=== PATIENT | male | born 1960 | race American Indian/Alaskan Native ===

== ENCOUNTER 2019-07-15 14:09 | Inpatient (IN) | payer MEDICAID ==
--- NOTE | 2019-07-15 15:36 | Event Note ---
ED Screening Note Date of service: 07/15/19 Time: 15:32 ED Screening Note: 58 y o male presenst with throat pain stating his throat feels tight also cc of chills, sob HX: HTN, on meds states he doesnt know whats wrong seems very uncomfortable This initial assessment/diagnostic orders/clinical plan/treatment(s) is/are subject to change based on patients health status, clinical progression and re- assessment by fellow clinical providers in the ED. Further treatment and workup at subsequent clinical providers discretion. Patient/guardian urged not to elope from the ED as their condition may be serious if not clinically assessed and managed. Initial orders include: steroids, cxr evaluate
--- NOTE | 2019-07-15 17:09 | XRay Report ---
CHEST 2 VIEWS INDICATION / CLINICAL INFORMATION: pain/sob. COMPARISON: None available. FINDINGS: SUPPORT DEVICES: None. HEART / MEDIASTINUM: No significant abnormality. LUNGS / PLEURA: No significant pulmonary or pleural abnormality. .No pneumothorax. ADDITIONAL FINDINGS: No significant additional findings. IMPRESSION: 1. No acute findings. Signer Name: Delvin Mallory MD Signed: 07/15/2019 5:04 PM Workstation Name: [id number]
[2019-07-15] MEDS ORDERED: dexAMETHasone 20 MG/5 ML VIAL IV ONE (19:56)
--- NOTE | 2019-07-15 19:57 | Emergency Department Report ---
ED General Adult HPI - General Chief complaint: Upper Respiratory Infection Stated complaint: HYPERTENSION/FLU SYMPTOMS Source: patient Mode of arrival: Ambulatory Limitations: No Limitations - History of Present Illness Initial comments: 58 y o male presenst with throat pain stating his throat feels tight also cc of chills, sob HX: HTN, on meds states he doesnt know whats wrong Patient reports that he was seen at [facility] yesterday and diagnosed with the flu. Patient also reports that he was diagnosed with bedbugs. He has not picked up any of his medications. Patient is difficult to understand secondary to throat pain and swollen as well as increased mucus he is spitting into a vomit bag. Severity scale (0 -10): 7 - Related Data Allergies Allergy/AdvReac Type Severity Reaction Status Date / Time No Known Allergies Allergy Unverified 07/15/19 14:19 ED Review of Systems ROS: Stated complaint: HYPERTENSION/FLU SYMPTOMS Other details as noted in HPI ED Past Medical Hx - Past Medical History Previous Medical History?: Yes Hx Hypertension: Yes - Surgical History Past Surgical History?: Yes Hx Appendectomy: Yes - Social History Smoking Status: Current Every Day Smoker Substance Use Type: Alcohol, Cocaine, Marijuana ED Physical Exam - General Limitations: No Limitations General appearance: alert - Head Head exam: Present: atraumatic, normocephalic - Eye Eye exam: Present: normal appearance - Expanded ENT Exam Expanded Mouth exam: Present: drooling, muffled voice, tongue elevation Throat exam: Positive: tonsillomegaly - Neck Neck exam: Present: full ROM - Respiratory Respiratory exam: Present: normal lung sounds bilaterally. Absent: respiratory distress - Cardiovascular Cardiovascular Exam: Present: regular rate, normal rhythm. Absent: systolic murmur, diastolic murmur, rubs, gallop - Neurological Exam Neurological exam: Present: alert, oriented X3 - Psychiatric Psychiatric exam: Present: normal affect, normal mood - Skin Skin exam: Present: warm, dry, intact, normal color. Absent: rash ED Course Vital Signs 07/15/19 07/15/19 15:29 18:40 Temperature 98.3 F 97.4 F L Pulse Rate 80 73 Respiratory 20 18 Rate Blood Pressure 159/101 164/118 [Right] O2 Sat by Pulse 98 97 Oximetry ED Medical Decision Making - Radiology Data Radiology results: report reviewed Patient: SIXTO RODRIGUEZ MR#: [id number] [birth year] : 1960 Acct:[id number] Age/Sex: 58 / M ADM Date: 07/15/19 Loc: ED Attending Dr: Ordering Physician: JULIA CANTU Date of Service: 07/15/19 Procedure(s): XR chest routine 2V Accession Number(s): [id number] cc: JULIA CANTU Fluoro Time In Minutes: CHEST 2 VIEWS INDICATION / CLINICAL INFORMATION: pain/sob. COMPARISON: None available. FINDINGS: SUPPORT DEVICES: None. HEART / MEDIASTINUM: No significant abnormality. LUNGS / PLEURA: No significant pulmonary or pleural abnormality. .No pneumothorax. ADDITIONAL FINDINGS: No significant additional findings. IMPRESSION: 1. No acute findings. Signer Name: Delvin Mallory MD Signed: 07/15/2019 5:04 PM Workstation Name: [id number] Transcribed By: Dictated By: Delvin Mallory MD Electronically Authenticated By: Delvin Mallory MD Signed Date/Time: 07/15/191703 DD/ 03 TD/TT: - Medical Decision Making 58 y o male presenst with throat pain stating his throat feels tight also cc of chills, sob HX: HTN, on meds states he doesnt know whats wrong Patient reports that he was seen at [facility] yesterday and diagnosed with the flu. Patient also reports that he was diagnosed with bedbugs. He has not picked up any of his medications. Patient is difficult to understand secondary to throat pain and swollen as well as increased mucus he is spitting into a vomit bag. Critical care attestation.: If time is entered above; I have spent that time in minutes in the direct care of this critically ill patient, excluding procedure time. ED Disposition Condition: Stable
[2019-07-15] MEDS ORDERED: SODIUM CHLORIDE 0.9% 1000 ML 1,000 ML IV ONE (20:50)
--- NOTE | 2019-07-15 20:53 | Emergency Department Report ---
ED General Adult HPI - General Chief complaint: Upper Respiratory Infection Stated complaint: HYPERTENSION/FLU SYMPTOMS Time Seen by Provider: 07/15/19 19:55 Source: patient Mode of arrival: Ambulatory Limitations: No Limitations - History of Present Illness Initial comments: Patient is a 58-year-old male known to this hospital before. Patient presented to the triage area complaining of throat pain and difficulty swallowing and breathing since yesterday getting worse today. Patient had a history of schizophrenia, IBS, seizure and hypertension. Patient stated that he went to [facility] yesterday and he was diagnosed with flu. Upon my assessment the patient patient is with obvious airway compromise and gargling. Patient is unable to complete sentences, unable to obtain more history from the patient. Patient immediately moved to [place] ED. Using etomidate, I attempted to visualize his upper airway, unable to visualize his vocal cords due to significant soft tissue swelling. Anesthesia consulted and immediately examined the patient at bedside. During all this resuscitation time, patient maintained his oxygen saturation above 95%. Severity scale (0 -10): 7 - Related Data Home Medications Medication Instructions Recorded Confirmed Last Taken No Known Home Medications [No 07/16/19 07/16/19 Unknown Reported Home Medications] Allergies Allergy/AdvReac Type Severity Reaction Status Date / Time Penicillins AdvReac Itching Verified 07/15/19 21:37 ED Review of Systems ROS: Stated complaint: HYPERTENSION/FLU SYMPTOMS Other details as noted in HPI Comment: Unobtainable due to pts medical conditions ED Past Medical Hx - Past Medical History Previous Medical History?: Yes Hx Hypertension: Yes - Surgical History Past Surgical History?: Yes Hx Appendectomy: Yes - Social History Smoking Status: Current Every Day Smoker Substance Use Type: Alcohol, Cocaine, Marijuana - Medications Home Medications: Home Medications Medication Instructions Recorded Confirmed Last Taken Type No Known Home Medications [No 07/16/19 07/16/19 Unknown History Reported Home Medications] ED Physical Exam - General Limitations: No Limitations General appearance: alert, in distress (acute respiratory distress) - Head Head exam: Present: atraumatic, normocephalic, normal inspection - Eye Eye exam: Present: normal appearance - ENT ENT exam: Present: normal exam - Neck Neck exam: Present: other (tracheostomy scar seen.). Absent: tenderness - Respiratory Respiratory exam: Present: normal lung sounds bilaterally - Cardiovascular Cardiovascular Exam: Present: regular rate, normal rhythm, normal heart sounds - GI/Abdominal GI/Abdominal exam: Present: soft, normal bowel sounds. Absent: distended, tenderness, guarding, rebound, rigid, organomegaly, mass, bruit, pulsatile mass, hernia - Extremities Exam Extremities exam: Present: normal inspection, full ROM, normal capillary refill. Absent: pedal edema, calf tenderness - Back Exam Back exam: Present: normal inspection, full ROM. Absent: CVA tenderness (R), CVA tenderness (L) - Neurological Exam Neurological exam: Present: alert, oriented X3 - Skin Skin exam: Present: warm, intact, normal color ED Course Vital Signs 07/15/19 07/15/19 07/15/19 15:29 18:40 20:30 Temperature 98.3 F 97.4 F L Pulse Rate 80 73 78 Respiratory 20 18 27 H Rate Blood Pressure 175/123 Blood Pressure 159/101 164/118 [Right] O2 Sat by Pulse 98 97 92 Oximetry 07/15/19 07/15/19 07/15/19 20:47 21:00 21:15 Temperature Pulse Rate 77 72 76 Respiratory 13 27 H 23 Rate Blood Pressure 194/119 160/107 166/109 Blood Pressure [Right] O2 Sat by Pulse 99 90 95 Oximetry 07/15/19 07/15/19 07/15/19 21:30 21:45 21:55 Temperature Pulse Rate 81 71 85 Respiratory 20 19 Rate Blood Pressure 170/114 169/124 170/114 Blood Pressure [Right] O2 Sat by Pulse 96 100 Oximetry 07/15/19 07/15/19 07/15/19 22:00 22:45 23:15 Temperature Pulse Rate 69 65 66 Respiratory 23 25 H 19 Rate Blood Pressure 144/96 147/100 131/89 Blood Pressure [Right] O2 Sat by Pulse 99 100 99 Oximetry 07/15/19 07/15/19 07/16/19 23:30 23:45 00:00 Temperature 97.6 F Pulse Rate 66 93 H Respiratory 19 23 Rate Blood Pressure 139/92 139/92 Blood Pressure [Right] O2 Sat by Pulse 99 98 Oximetry 07/16/19 07/16/19 07/16/19 00:45 01:00 01:15 Temperature Pulse Rate 59 L 57 L 59 L Respiratory 14 20 20 Rate Blood Pressure 146/97 155/98 156/99 Blood Pressure [Right] O2 Sat by Pulse 98 99 100 Oximetry 07/16/19 07/16/19 07/16/19 01:45 02:01 02:15 Temperature Pulse Rate 65 62 65 Respiratory 19 20 19 Rate Blood Pressure 145/98 142/94 143/98 Blood Pressure [Right] O2 Sat by Pulse 99 99 99 Oximetry 07/16/19 07/16/19 07/16/19 02:30 03:15 03:31 Temperature Pulse Rate 64 71 64 Respiratory 20 12 19 Rate Blood Pressure 155/99 137/102 132/80 Blood Pressure [Right] O2 Sat by Pulse 99 99 99 Oximetry 07/16/19 07/16/19 07/16/19 03:45 04:15 04:30 Temperature Pulse Rate 68 66 66 Respiratory 20 15 17 Rate Blood Pressure 124/76 120/78 136/89 Blood Pressure [Right] O2 Sat by Pulse 100 100 100 Oximetry 07/16/19 07/16/19 07/16/19 04:45 05:00 05:15 Temperature Pulse Rate 64 74 84 Respiratory 24 17 27 H Rate Blood Pressure 135/83 146/96 146/96 Blood Pressure [Right] O2 Sat by Pulse 100 98 98 Oximetry 07/16/19 07/16/19 07/16/19 05:31 05:45 06:01 Temperature Pulse Rate 70 72 60 Respiratory 19 13 19 Rate Blood Pressure 143/88 143/88 143/88 Blood Pressure [Right] O2 Sat by Pulse 97 99 97 Oximetry 07/16/19 07/16/19 07/16/19 06:15 06:31 06:45 Temperature Pulse Rate 79 65 63 Respiratory 12 15 15 Rate Blood Pressure 143/88 143/88 143/88 Blood Pressure [Right] O2 Sat by Pulse 98 99 100 Oximetry 07/16/19 07/16/19 07/16/19 07:00 07:49 08:15 Temperature Pulse Rate 61 74 60 Respiratory 12 13 15 Rate Blood Pressure 115/86 151/92 Blood Pressure 154/108 [Right] O2 Sat by Pulse 100 99 100 Oximetry 07/16/19 07/16/19 07/16/19 08:45 09:00 09:15 Temperature Pulse Rate 79 61 62 Respiratory 14 12 12 Rate Blood Pressure 148/98 146/96 155/102 Blood Pressure [Right] O2 Sat by Pulse 100 100 100 Oximetry 07/16/19 07/16/19 07/16/19 09:45 10:00 10:15 Temperature Pulse Rate 69 73 67 Respiratory 18 16 13 Rate Blood Pressure 137/97 147/98 140/95 Blood Pressure [Right] O2 Sat by Pulse 98 100 97 Oximetry 07/16/19 07/16/19 07/16/19 11:30 12:40 12:43 Temperature 97.7 F Pulse Rate 81 76 Respiratory 15 14 Rate Blood Pressure 135/90 127/79 Blood Pressure [Right] O2 Sat by Pulse 97 96 Oximetry 07/16/19 07/16/19 07/16/19 12:50 13:00 13:10 Temperature Pulse Rate 77 73 82 Respiratory 24 19 19 Rate Blood Pressure 126/67 126/67 128/95 Blood Pressure [Right] O2 Sat by Pulse 97 95 90 Oximetry 07/16/19 13:20 Temperature Pulse Rate 83 Respiratory 15 Rate Blood Pressure 128/95 Blood Pressure [Right] O2 Sat by Pulse 99 Oximetry ED Medical Decision Making - Lab Data Result diagrams: 07/15/19 20:48 07/16/19 05:39 - Radiology Data Radiology results: report reviewed - Medical Decision Making Patient is a 58-year-old male known to this hospital before. Patient presented to the triage area complaining of throat pain and difficulty swallowing and breathing since yesterday getting worse today. Patient had a history of schizophrenia, IBS, seizure and hypertension. Patient stated that he went to [facility] yesterday and he was diagnosed with flu. Upon my assessment the patient patient is with obvious airway compromise and gargling. Patient is unable to complete sentences, unable to obtain more history from the patient. Patient immediately moved to [place] ED. Using etomidate, I attempted to visualize his upper airway, unable to visualize his vocal cords due to significant soft tissue swelling. Anesthesia consulted and immediately examined the patient at bedside. During all this resuscitation time, patient maintained his oxygen saturation above 95%. Labs reviewed and is unremarkable. CT soft tissue neck showed marketed soft tissue swelling in the roof of the nasopharynx and palatine. Pharynx, hypopharynx and larynx are normal. I discussed the patient with Dr. Donald Hebert, ENT at [facility] . I informed him about the CT soft tissue neck finding and he advised that patient does not need ENT at this moment and he will be happy to be called in if needed. He advised that patient would need to be admitted to ICU and continue on Decadron and clindamycin. I discussed the patient with Dr. Kelin Maynard, she agreed to admit the patient to medical service for further management. Critical Care Time: Yes Critical care time in (mins) excluding proc time.: 60 Critical care attestation.: If time is entered above; I have spent that time in minutes in the direct care of this critically ill patient, excluding procedure time. ED Disposition Clinical Impression: Compromised airway Disposition: [id number] OP ADMIT IP TO THIS HOSP Is pt being admited?: Yes Condition: Stable
[2019-07-15 21:14] LABS: Basophils % (Auto) 0.4 % (0.0-1.8); Eosinophils # (Auto) 0.4 K/mm3 (0.0-0.4); Eosinophils % (Auto) 5.6 % (0.0-4.3); Hematocrit 40.8 % (35.5-45.6); Hemoglobin 13.5 gm/dl (11.8-15.2); Lymphocytes # (Auto) 1.5 K/mm3 (1.2-5.4); Lymphocytes % (Auto) 22.1 % (13.4-35.0); Mean Corpuscular HGB Conc 33 % (32-34); Mean Corpuscular Volume 87 fl (84-94); Monocytes # (Auto) 0.7 K/mm3 (0.0-0.8); Monocytes % (Auto) 9.3 % (0.0-7.3); Platelet Count 205 K/mm3 (140-440); Red Blood Count 4.71 M/mm3 (3.65-5.03); Red Cell Distribution Width 14.8 % (13.2-15.2)
[2019-07-15] MEDS ORDERED: SODIUM CHLORIDE 0.9% 1000 ML 1,000 ML ONE (21:20)
--- NOTE | 2019-07-15 21:22 | Cat Scan Report ---
CT neck w con INDICATION / CLINICAL INFORMATION: 58 years Male; throat swelling. TECHNIQUE: Contiguous thin cut axial images obtained through the neck following IV contrast. Sagittal and sanz l reconstructions performed by the technologist. All CT scans at this location are performed using CT dose reduction for ALARA by means of automated exposure control. COMPARISON: None available. FINDINGS: Nasal intubation noted. There is markedly prominent soft tissue in the roof the nasopharynx and palatine tonsillar region. Pa rapharyngeal space is fairly well preserved. Prominent lingual tonsillar tissue noted as well. Reacti ve process could be considered, although etiologies such as lymphoma might be considered as well. No signs of abscess. MUCOSAL SPACE: The nasopharynx, oropharynx and vallecula, oral cavity and floor of mouth, hypopharynx , and larynx are grossly normal. LYMPH NODES: A few mildly prominent, scattered lymph nodes identified. SALIVARY GLANDS: Parotid, submandibular, and visualized sublingual glands are within normal limits. THYROID GLAND: Unremarkable. PARANASAL SINUSES: Mucous retention cyst/polyps seen in both maxillary antra. There is also mild muco valeri thickening present. Furthermore, mild to moderate mucosal thickening is seen in the mastoids-left greater than right. SPINE: Significant, multilevel degenerative changes seen. There is significant facet hypertrophy on t he left at C2-3 and on the right at C4-5. VASCULAR STRUCTURES: Vascular structures are grossly normal in appearance. Poor dentition noted. Surrounding soft tissues are otherwise grossly normal. IMPRESSION: 1. Prominent mucosal tissue in the naso- and oropharynx, as described above. Signer Name: Bashir Sneed MD, III Signed: 07/15/2019 9:18 PM Workstation Name: [id number]
[2019-07-15] MEDS ORDERED: hydrALAZINE 20 MG/1 ML INJ ONE (21:36)
[2019-07-15 21:39] LABS: Alanine Aminotransferase 12 units/L (7-56); Albumin 3.8 g/dL (3.9-5); BUN/Creatinine Ratio 14; Blood Urea Nitrogen 11 mg/dL (9-20); Calcium 8.8 mg/dL (8.4-10.2); Hemolysis Index 13
[2019-07-15] MEDS ORDERED: hydrALAZINE 20 MG/1 ML INJ IV ONE (21:55)
--- NOTE | 2019-07-15 23:58 | History and Physical Report ---
History of Present Illness Date of examination: 07/15/19 History of present illness: 58-year-old male with a history of hypertension, seizure, schizophrenia, IBS comes emergency room with complaints of gurgling and shortness of breath. He was seen at [facility] yesterday, diagnosed with the flu, he was given medication which he cannot recall. Today he felt like he was choking and he was gurgling a little. ER consulted anesthesia who placed nasal airway, however the patient pulled it out. ENT from [facility] was consulted on the patient, he recommended to continue Decadron and clindamycin Review of systems Constitutional: no weight loss, chills, fever Ears, eyes, nose, mouth and throat: no nasal congestion, no nasal discharge, no sinus pressure, no vision change, no red eye. Neck: No neck pain or rigidity. Cardiovascular: no palpitations, chest pain Respiratory: no cough, shortness of breath Gastrointestinal: no hematochezia, abdominal pain Genitourinary : no frequency , no hematuria Musculoskeletal: no joint swelling or muscle ache Integumentary: no rash, no pruritis Neurological: no parathesias, no focal weakness Endocrine: no cold or heat intolerance, no polyuria or polydipsia Hematologic/Lymphatic: no easy bruising, no easy bleeding, no gland swelling Allergic/Immunologic: no urticaria, no angioedema. PAST MEDICAL HISTORY: Hypertension, seizure, schizophrenia, IBS PAST SURGICAL HISTORY: Appendectomy SOCIAL HISTORY: + alcohol, +cocaine, + tobacco FAMILY HISTORY: Hypertension Medications and Allergies Allergies Allergy/AdvReac Type Severity Reaction Status Date / Time Penicillins AdvReac Itching Verified 07/15/19 21:37 Home Medications Medication Instructions Recorded Confirmed Last Taken Type No Known Home Medications [No 07/16/19 07/16/19 Unknown History Reported Home Medications] Exam - Physical Exam Narrative exam: General Apperance: The patient lying in bed, breathing comfortable, speaks in complete sentences HEENT: Normocephalic, atraumatic. Pupils equally round and reactive to light, EOMI, no sclericterus or JVD or thyromegaly or nodule. , no carotid bruit, mucous membranes moist, no exudate or erythema Heart: S1-S2, regular is rhythm Lungs: clear, breathing comfortable Abdomen: Positive bowel sounds, soft, nontender, nondistended, no organomegaly Extremities: amputation of the left forearm, No edema cyanosis clubbing Skin: no rash, nodule, warm and dry Neuro: cranial nerves 2-12 intact, speech is fluent, motor/sensory intact - Constitutional Vitals: Temp Pulse Resp BP Pulse Ox 97.4 F L 85 20 170/114 96 07/15/19 18:40 07/15/19 21:55 07/15/19 21:30 07/15/19 21:55 07/15/19 21:30 Results - Labs CBC & Chem 7: 07/15/19 20:48 07/16/19 05:39 Labs: Abnormal lab results 07/15/19 07/15/19 Range/Units 20:48 20:48 [place] % (Auto) 9.3 H (0.0-7.3) % Eos % (Auto) 5.6 H (0.0-4.3) % Sodium 136 L (137-145) mmol/L Albumin 3.8 L (3.9-5) g/dL Assessment and Plan CT neck reviewed Assessment Swelling of the naso/orapharynx Continue steroids, clindamycin, consult ID Close monitoring the ICU Critical care consultation Nothing by mouth, IV fluids Hypertension IV hydralazine for blood pressure control Schizophrenia, stable Seizure IV Ativan as needed for breakthrough seizure restart outpatient medications DVT prophalaxis
[2019-07-16] MEDS ORDERED: ONDANSETRON 4 MG/2 ML INJ IV PRN (01:11)
[2019-07-16] MEDS ORDERED: ACETAMINOPHEN 650 MG RECT SUPP PR PRN (01:11)
[2019-07-16] MEDS ORDERED: hydrALAZINE 20 MG/1 ML INJ IV PRN (01:15)
[2019-07-16] MEDS ORDERED: methylPREDNISolone Sod Succinate 125 MG/2 ML INJ IV SCH ×3 (02:00→20:10)
[2019-07-16] MEDS ORDERED: SODIUM CHLORIDE 0.45% 1000 ML 1,000 ML IV SCH (02:00)
[2019-07-16] MEDS ORDERED: methylPREDNISolone Sod Succinate 125 MG/2 ML INJ ONE (02:45)
[2019-07-16] MEDS ORDERED: SODIUM CHLORIDE 0.45% 1000 ML 1,000 ML IV ONE (02:45)
[2019-07-16] MEDS: CLINDAMYCIN 600 MG/50 mL 600 MG/50 ML BAG IV SCH ×2 (03:01→11:00)
[2019-07-16 07:03] LABS: BUN/Creatinine Ratio 14; Blood Urea Nitrogen 10 mg/dL (9-20)
[2019-07-16 07:04] LABS: Alanine Aminotransferase 13 units/L (7-56); Albumin 3.9 g/dL (3.9-5); Calcium 8.8 mg/dL (8.4-10.2); Hemolysis Index 31
[2019-07-16 09:04] LABS: INR 1.07 (0.87-1.13)
[2019-07-16] MEDS ORDERED: CLINDAMYCIN IV ONE (10:53)
[2019-07-16] MEDS ORDERED: ENOXAPARIN 40 MG/0.4 ML INJ SUB-Q ONE (10:54)
[2019-07-16] MEDS: ENOXAPARIN 40 MG/0.4 ML INJ SUB-Q SCH (11:00)
--- NOTE | 2019-07-16 12:23 | Consultation ---
History of Present Illness - Reason for Consult Consult date: 07/16/19 - History of Present Illness 58 yo M PMHx HTN, seizures, IBS presented to the hosptial with complaints of SOB. He notes presenting to [facility] yesterday where he was diagnosed with flu. He reports being given a medication there, though he does not recall what it was called. However, his symptoms began to worsen over the next day or so with complaints of choking and gurgling. He reports feeling much better now, and that he feels he is at his baseline health. His symptoms are currently resolved. Afebrile since admission, normal white count. Blood cultures pending. Flu negative. Currently receiving tamiflu and clindamycin. Imaging personally reviewed: CXR: no findings CT neck: prominent mucosal tissue in naso and oropharynx Bold if positive; otherwise negative GENERAL: fever, chills, weight loss, fatigue, night sweats EYES: blurry vision, eye pain HENT: headache, hearing loss, sore throat, dysphagia, sinus pain CARDIO: chest pain, palpitations, orthopnea PULM: shortness of breath, wheezing, cough, sputum, hemoptysis GI: nausea, vomiting, diarrhea, abdominal pain, blood in stool : urinary frequency, urgency, dysuria, urethral discharge MSK: joint pain, back pain, swelling SKIN: rash, redness HEME: easy bruising, bleeding Past History Past Medical History: hypertension, other (per HPI) Past Surgical History: Other (Unable to obtain secondary to intubation) Social history: other (Unable to obtain secondary to intubation) Family history: other (Unable to obtain secondary to intubation) Medications and Allergies Allergies Allergy/AdvReac Type Severity Reaction Status Date / Time Penicillins AdvReac Itching Verified 07/15/19 21:37 Home Medications Medication Instructions Recorded Confirmed Last Taken Type No Known Home Medications [No 07/16/19 07/16/19 Unknown History Reported Home Medications] Active Meds: Active Medications Acetaminophen (Tylenol) 650 mg SC Q4H PRN PRN Reason: Pain MILD(1-3)/Fever >100.5/CESAR Enoxaparin Sodium (Enoxaparin) 40 mg SUB-Q QDAY SRUTHI Last Admin: 07/16/19 11:00 Dose: 40 mg Documented by: Hydralazine HCl (Apresoline) 5 mg IV Q6H PRN PRN Reason: Hypertension Sodium Chloride (Nacl 0.45% 1000 Ml) 1,000 mls @ 75 mls/hr IV DIRECT SRUTHI Last Admin: 07/16/19 03:02 Dose: 75 mls/hr Documented by: Clindamycin HCl (Cleocin 600 Mg/50 Ml) 600 mg in 50 mls @ 100 mls/hr IV Q8H SRUTHI; Protocol Last Admin: 07/16/19 11:00 Dose: 100 mls/hr Documented by: Methylprednisolone Sodium Succinate (Solu-Medrol) 60 mg IV Q8HR SRUTHI Ondansetron HCl (Zofran) 4 mg IV Q8H PRN PRN Reason: Nausea And Vomiting Oseltamivir Phosphate (Tamiflu) 75 mg PO BID SRUTHI Stop: 07/20/19 22:01 Sodium Chloride (Sodium Chloride Flush Syringe 10 Ml) 10 ml IV BID SRUTHI Last Admin: 07/16/19 10:48 Dose: 10 ml Documented by: Sodium Chloride (Sodium Chloride Flush Syringe 10 Ml) 10 ml IV PRN PRN PRN Reason: LINE FLUSH Physical Examination - Physical Exam Narrative exam: General Intubated, sedated Eyes - PERRLA, EOM intact ENT - Moist mucous membranes, no lymphadenopathy. Mouth without purulent tonsillitis Neck - No noticeable or palpable swelling, redness or rash around throat or on face Lymph Nodes - No lymphadenopathy Cardiovascular - RRR no m/r/g, no JVD, no carotid bruits Lungs - Clear to auscultation, no use of accessory muscles, no crackles or wheezes. Skin - No rashes, skin warm and dry, no erythematous areas Abdomen - Normal bowel sounds, abdomen soft and nontender Extremities - No edema, cyanosis or clubbing Musculoskeletal - 5/5 strength, normal range of motion, no swollen or erythematous joints. Neurological Sedated - Constitutional Vitals: Vital Signs Temp Pulse Resp BP Pulse Ox 97.6 F 74 13 154/108 99 07/16/19 00:00 07/16/19 07:49 07/16/19 07:49 07/16/19 07:49 07/16/19 07:49 Temperature -Last 24 Hours Temperature 97.6 F Temperature 97.4 F Temperature 98.3 F Results - Labs CBC & Chem 7: 07/15/19 20:48 07/16/19 05:39 Labs: Abnormal lab results 07/15/19 07/15/19 07/16/19 Range/Units 20:48 20:48 05:39 [place] % (Auto) 9.3 H (0.0-7.3) % Eos % (Auto) 5.6 H (0.0-4.3) % Sodium 136 L 136 L (137-145) mmol/L Creatinine 0.7 L (0.8-1.5) mg/dL Glucose 136 H (75-100) mg/dL Albumin 3.8 L (3.9-5) g/dL Assessment and Plan Cultures Blood culture 07/15/19 no growth to date Assessment: 58 yo M pMHx HTN, seizures, IBS admitted with pharyngeal edema. 1. Pharyngeal edema - unable to examine throat, unclear if pharyngitis. CT not concerning for abscess at this time. ?Consider biopsy given report of concern for lymphoma. Would check for HIV as can cause pharyngitis. Strep negative. Flu negative. Can continue clindamycin for a couple of days to see if improvement. Flu negative here, unclear how diagnosis was made at [facility] (clinical vs lab). Continue Tamiflu. 2. HTN 3. Seizures Recs: - check HIV - continue Tamiflu -complete 5 days - stop clindamycin Thank you for the consult, we will continue to follow. [facility] ([facility]) M: [phone] O: [phone] F: [phone]
[2019-07-16] MEDS: OSELTAMIVIR 75 MG CAP PO SCH ×2 (13:07→23:37)
[2019-07-16] MEDS ORDERED: methylPREDNISolone Sod Succinate 40 MG/1 ML INJ ONE (13:27)
[2019-07-16] MEDS ORDERED: KETAMINE 500 MG/5 ML VIAL MDV ONE (16:00)
[2019-07-16] MEDS ORDERED: ETOMIDATE 20 MG/10 ML INJ IV ONE (16:00)
[2019-07-16] MEDS ORDERED: MIDAZOLAM 5 MG/5 ML INJ MDV IV ONE (16:00)
[2019-07-16] MEDS ORDERED: SUCCINYLCHOLINE CHLORIDE 200 MG/10 ML INJ MDV ONE (16:00)
--- NOTE | 2019-07-16 17:52 | Progress Note ---
Assessment and Plan Assessment and plan: 58-year-old male with a history of hypertension, seizure, schizophrenia, IBS comes emergency room with complaints of gurgling and shortness of breath. He was seen at [facility] yesterday, diagnosed with the flu, he was given medication which he cannot recall. Today he felt like he was choking and he was gurgling a little. ER consulted anesthesia who placed nasal airway, however the patient pulled it out. ENT from [facility] was consulted on the patient, he recommended to continue Decadron and clindamycin Pharyngeal Edema Taper steroids, Clindamycin discontinued ID consulted Doubt allergy to Tamiflu Close monitoring the ICU Critical care consultation Nothing by mouth, IV fluids Presumed influenza Negative here and awaiting record from [facility] Hypertension IV hydralazine for blood pressure control Schizophrenia, stable Seizure IV Ativan as needed for breakthrough seizure restart outpatient medications DVT prophalaxis Downgrade to telemetry with continuous pulse ox History Interval history: Patient seen and examined, on evaluation of the patient today he is awake alert oriented he is focal and speaking although sometimes with garbled speech. He does not demonstrate any difficulty swallowing at this time. Hospitalist Physical - Physical exam Narrative exam: VITAL SIGNS: Reviewed. GENERAL: The patient appears normally developed, Vital signs as documented. HEAD: No signs of head trauma. EYES: Pupils are equal. Extraocular motions intact. EARS: Hearing grossly intact. MOUTH: Oropharynx is normal. NECK: No adenopathy, no JVD. CHEST: Chest with clear breath sounds bilaterally. No wheezes, rales, or rhonchi. CARDIAC: Regular rate and rhythm. S1 and S2, without murmurs, gallops, or rubs. VASCULAR: No Edema. Peripheral pulses normal and equal in all extremities. ABDOMEN: Soft, non tender and non distended. No rebound or guarding, and no masses palpated. Bowel Sounds normal. MUSCULOSKELETAL: Good range of motion of all major joints. Extremities without clubbing, cyanosis or edema. NEUROLOGIC EXAM: Alert and oriented x 3 No focal sensory or strength deficits. Speech normal at times garbled but appears to be in control. Follows commands. PSYCHIATRIC: Mood normal. SKIN: detial exam as documented in skin assessment - Constitutional Vitals: Temp Pulse Resp BP Pulse Ox 97.7 F 81 15 135/90 97 07/16/19 12:43 07/16/19 11:30 07/16/19 11:30 07/16/19 11:30 07/16/19 11:30 Results - Labs CBC & Chem 7: 07/15/19 20:48 07/16/19 05:39 Labs: Laboratory Last Values WBC 7.0 K/mm3 (4.5-11.0) 07/15/19 20:48 RBC 4.71 M/mm3 (3.65-5.03) 07/15/19 20:48 Hgb 13.5 gm/dl (11.8-15.2) 07/15/19 20:48 Hct 40.8 % (35.5-45.6) 07/15/19 20:48 MCV 87 fl (84-94) 07/15/19 20:48 MCH 29 pg (28-32) 07/15/19 20:48 MCHC 33 % (32-34) 07/15/19 20:48 RDW 14.8 % (13.2-15.2) 07/15/19 20:48 Plt Count 205 K/mm3 (140-440) 07/15/19 20:48 Lymph % (Auto) 22.1 % (13.4-35.0) 07/15/19 20:48 [place] % (Auto) 9.3 % (0.0-7.3) H 07/15/19 20:48 Eos % (Auto) 5.6 % (0.0-4.3) H 07/15/19 20:48 Baso % (Auto) 0.4 % (0.0-1.8) 07/15/19 20:48 Lymph # 1.5 K/mm3 (1.2-5.4) 07/15/19 20:48 [place] # 0.7 K/mm3 (0.0-0.8) 07/15/19 20:48 Eos # 0.4 K/mm3 (0.0-0.4) 07/15/19 20:48 Baso # 0.0 K/mm3 (0.0-0.1) 07/15/19 20:48 Seg Neutrophils % 62.6 % (40.0-70.0) 07/15/19 20:48 Seg Neutrophils # 4.4 K/mm3 (1.8-7.7) 07/15/19 20:48 PT 14.0 Sec. (12.2-14.9) 07/16/19 05:39 INR 1.07 (0.87-1.13) 07/16/19 05:39 Sodium 136 mmol/L (137-145) L 07/16/19 05:39 Potassium 4.6 mmol/L (3.6-5.0) D 07/16/19 05:39 Chloride 100.1 mmol/L (98-107) 07/16/19 05:39 Carbon Dioxide 24 mmol/L (22-30) 07/16/19 05:39 Anion Gap 16 mmol/L 07/16/19 05:39 BUN 10 mg/dL (9-20) 07/16/19 05:39 Creatinine 0.7 mg/dL (0.8-1.5) L 07/16/19 05:39 Estimated GFR > 60 ml/min 07/16/19 05:39 BUN/Creatinine Ratio 14 % 07/16/19 05:39 Glucose 136 mg/dL (75-100) H 07/16/19 05:39 Calcium 8.8 mg/dL (8.4-10.2) 07/16/19 05:39 Total Bilirubin 0.40 mg/dL (0.1-1.2) 07/16/19 05:39 AST 14 units/L (5-40) 07/16/19 05:39 ALT 13 units/L (7-56) 07/16/19 05:39 Alkaline Phosphatase 73 units/L (35-129) 07/16/19 05:39 Total Protein 6.9 g/dL (6.3-8.2) 07/16/19 05:39 Albumin 3.9 g/dL (3.9-5) 07/16/19 05:39 Albumin/Globulin Ratio 1.3 % 07/16/19 05:39 Influenza A (Rapid) Negative (Negative) 07/15/19 Unknown Influenza B (Rapid) Negative (Negative) 07/15/19 Unknown Group A Strep Rapid Negative (Negative) 07/15/19 Unknown Active Medications - Current Medications Current Medications: Generic Name Dose Route Start Last Admin Trade Name Freq PRN Reason Stop Dose Admin Acetaminophen 650 mg 07/16/19 01:11 Tylenol DC Q4H PRN Pain MILD(1-3)/Fever >100.5/CESAR Enoxaparin Sodium 40 mg 07/16/19 10:00 07/16/19 11:00 Enoxaparin SUB-Q 40 mg QDAY SRUTHI Administration Hydralazine HCl 5 mg 07/16/19 01:15 Apresoline IV Q6H PRN Hypertension Sodium Chloride 1,000 mls @ 75 mls/hr 07/16/19 02:00 07/16/19 03:02 Nacl 0.45% 1000 Ml IV 75 mls/hr DIRECT SRUTHI Administration Methylprednisolone Sodium Succinate 60 mg 07/16/19 14:00 07/16/19 13:55 Solu-Medrol IV 60 mg Q8HR SRUTHI Administration Ondansetron HCl 4 mg 07/16/19 01:11 Zofran IV Q8H PRN Nausea And Vomiting Oseltamivir Phosphate 75 mg 07/16/19 10:00 07/16/19 13:07 Tamiflu PO 07/20/19 22:01 75 mg BID SRUTHI Administration Sodium Chloride 10 ml 07/16/19 10:00 07/16/19 10:48 Sodium Chloride Flush Syringe 10 Ml IV 10 ml BID SRUTHI Administration Sodium Chloride 10 ml 07/16/19 01:11 Sodium Chloride Flush Syringe 10 Ml IV PRN PRN LINE FLUSH
[2019-07-16] MEDS: methylPREDNISolone Sod Succinate 40 MG/1 ML INJ IV SCH (22:21)
[2019-07-16] MEDS: FAMOTIDINE 20 MG/2 ML INJ IV SCH (23:37)
[2019-07-17] MEDS: methylPREDNISolone Sod Succinate 40 MG/1 ML INJ IV SCH ×4 (05:05→22:23)
[2019-07-17] MEDS ORDERED: hydrALAZINE 20 MG/1 ML INJ IV PRN (08:09)
[2019-07-17] MEDS: FAMOTIDINE 20 MG/2 ML INJ IV SCH ×2 (11:04→22:23)
[2019-07-17] MEDS: ENOXAPARIN 40 MG/0.4 ML INJ SUB-Q SCH (11:04)
[2019-07-17] MEDS: OSELTAMIVIR 75 MG CAP PO SCH ×2 (11:34→22:21)
--- NOTE | 2019-07-17 13:51 | Discharge Summary ---
Providers - Providers Date of Admission: 07/15/19 23:58 Attending physician: INDIANA YADAV MD 07/16/19 05:16 Consult to Physician [CONS] Routine Comment: Consulting Provider: KAREL ELIZONDO Physician Instructions: Reason For Exam: naso-orapharyn swelling [facility] Reason for admission: Pharyngeal edema Condition: Stable Hospital course: 58-year-old male with a history of hypertension, seizure, schizophrenia, IBS comes emergency room with complaints of gurgling and shortness of breath. He was seen at [facility] yesterday, diagnosed with the flu, he was given medication which he cannot recall. Today he felt like he was choking and he was gurgling a little. ER consulted anesthesia who placed nasal airway, however the patient pulled it out. ENT from [facility] was consulted on the patient, he recommended to continue Decadron and clindamycin * Patient was admitted continued on Tamiflu downgraded as noted in my previous record. 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 * He has been tolerating diet with no complaints. * Patient has not had any recurrent respiratory distress and is stable for discharge at this time * Steroids will be tapered Pharyngeal Edema Presumed influenza Hypertension Schizophrenia, stable Seizure Disposition: DC-01 TO HOME OR SELFCARE Time spent for discharge: 35 mins Core Measure Documentation - Palliative Care Palliative Care/ Comfort Measures: Not Applicable - Core Measures Any of the following diagnoses?: none Exam - Physical Exam Narrative exam: VITAL SIGNS: Reviewed. GENERAL: The patient appears normally developed, Vital signs as documented. HEAD: No signs of head trauma. EYES: Pupils are equal. Extraocular motions intact. EARS: Hearing grossly intact. MOUTH: Oropharynx is normal. NECK: No adenopathy, no JVD. CHEST: Chest with clear breath sounds bilaterally. No wheezes, rales, or rhonchi. CARDIAC: Regular rate and rhythm. S1 and S2, without murmurs, gallops, or rubs. VASCULAR: No Edema. Peripheral pulses normal and equal in all extremities. ABDOMEN: Soft, non tender and non distended. No rebound or guarding, and no masses palpated. Bowel Sounds normal. MUSCULOSKELETAL: Good range of motion of all major joints. Extremities without clubbing, cyanosis or edema. NEUROLOGIC EXAM: Alert and oriented x 3 No focal sensory or strength deficits. Speech normal at times garbled but appears to be in control. Fo llows commands. PSYCHIATRIC: Mood normal. SKIN: detial exam as documented in skin assessment - Constitutional Vitals: Temp Pulse Resp BP Pulse Ox 98.3 F 59 L 22 146/105 100 07/17/19 07:33 07/17/19 10:00 07/17/19 08:18 07/17/19 07:33 07/17/19 07:48 Plan Activity: advance as tolerated, fall precautions Diet: low fat Special Instructions: record daily BP diary Additional Instructions: complete tamiflu which he already has at home. continue home meds. he said no prescriptions needed Follow up with: ERNA LIMA MD [Primary Care Provider] - 3-5 Days
--- NOTE | 2019-07-17 14:32 | Progress Note ---
Assessment and Plan Cultures Blood culture 07/15/19 no growth to date Assessment: 58 yo M pMHx HTN, seizures, IBS admitted with pharyngeal edema. 1. Pharyngeal edema - unable to examine throat, unclear if pharyngitis. CT not concerning for abscess at this time. ?Consider biopsy given report of concern for lymphoma. Would check for HIV as can cause pharyngitis. Strep negative. Flu negative. Can continue clindamycin for a couple of days to see if improvement. Flu negative here, unclear how diagnosis was made at [facility] (clinical vs lab). Continue Tamiflu. 2. HTN 3. Seizures Recs: - check HIV - continue Tamiflu -complete 5 days - ok for discharge from infectious disease perspective. Thank you for the consult, we will continue to follow. [facility] ([facility]) M: [phone] O: [phone] F: [phone] Subjective Date of service: 07/17/19 Interval history: Feels well, no change. Objective - Exam Narrative Exam: General Intubated, sedated Eyes - PERRLA, EOM intact ENT - Moist mucous membranes, no lymphadenopathy. Mouth without purulent tonsillitis Neck - No noticeable or palpable swelling, redness or rash around throat or on face Lymph Nodes - No lymphadenopathy Cardiovascular - RRR no m/r/g, no JVD, no carotid bruits Lungs - Clear to auscultation, no use of accessory muscles, no crackles or wheezes. Skin - No rashes, skin warm and dry, no erythematous areas Abdomen - Normal bowel sounds, abdomen soft and nontender Extremities - No edema, cyanosis or clubbing Musculoskeletal - 5/5 strength, normal range of motion, no swollen or erythematous joints. Neurological Sedated - Constitutional Vitals: Vital Signs Temp Pulse Resp BP Pulse Ox 98.3 F 59 L 22 146/105 100 07/17/19 07:33 07/17/19 10:00 07/17/19 08:18 07/17/19 07:33 07/17/19 07:48 Temperature -Last 24 Hours Temperature 98.3 F Temperature 98.2 F Temperature 98.1 F Temperature 97.4 F - Labs CBC & Chem 7: 07/15/19 20:48 07/16/19 05:39
[2019-07-18] MEDS: methylPREDNISolone Sod Succinate 40 MG/1 ML INJ IV SCH (06:05)
[2019-07-18] MEDS: FAMOTIDINE 20 MG/2 ML INJ IV SCH (09:09)
[2019-07-18] MEDS: ENOXAPARIN 40 MG/0.4 ML INJ SUB-Q SCH (09:09)
[2019-07-18] MEDS: OSELTAMIVIR 75 MG CAP PO SCH (09:10)
[2019-07-18 11:39] VITALS: BP 157/89
--- NOTE | 2019-07-18 12:22 | Progress Note ---
Assessment and Plan Cultures Blood culture 07/15/19 no growth to date Assessment: 58 yo M pMHx HTN, seizures, IBS admitted with pharyngeal edema. 1. Pharyngeal edema - unable to examine throat, unclear if pharyngitis. CT not concerning for abscess at this time. ?Consider biopsy given report of concern for lymphoma. Would check for HIV as can cause pharyngitis. Strep negative. Flu negative. Can continue clindamycin for a couple of days to see if improvement. Flu negative here, unclear how diagnosis was made at [facility] (clinical vs lab). Continue Tamiflu. 2. HTN 3. Seizures Recs: - check HIV - continue Tamiflu -complete 5 days - ok for discharge from infectious disease perspective. Thank you for the consult, we will sign off. Please call with questions. [facility] ([facility]) M: [phone] O: [phone] F: [phone] Subjective Date of service: 07/18/19 Interval history: Feels well, no change. Objective - Exam Narrative Exam: General Intubated, sedated Eyes - PERRLA, EOM intact ENT - Moist mucous membranes, no lymphadenopathy. Mouth without purulent tonsill itis Neck - No noticeable or palpable swelling, redness or rash around throat or on face Lymph Nodes - No lymphadenopathy Cardiovascular - RRR no m/r/g, no JVD, no carotid bruits Lungs - Clear to auscultation, no use of accessory muscles, no crackles or wheezes. Skin - No rashes, skin warm and dry, no erythematous areas Abdomen - Normal bowel sounds, abdomen soft and nontender Extremities - No edema, cyanosis or clubbing Musculoskeletal - 5/5 strength, normal range of motion, no swollen or eryth ematous joints. Neurological Sedated - Constitutional Vitals: Vital Signs Temp Pulse Resp BP Pulse Ox 97.9 F 67 18 157/89 96 07/18/19 11:36 07/18/19 11:36 07/18/19 11:36 07/18/19 11:36 07/18/19 11:36 Temperature -Last 24 Hours Temperature 97.9 F Temperature 98.5 F Temperature 98.2 F Temperature 98.4 F Temperature 98.0 F - Labs CBC & Chem 7: 07/15/19 20:48 07/16/19 05:39
--- NOTE | 2019-07-18 15:55 | Discharge Summary ---
Providers - Providers Date of Admission: 07/15/19 23:58 Attending physician: INDIANA YADAV MD 07/16/19 05:16 Consult to Physician [CONS] Routine Comment: Consulting Provider: KAREL ELIZONDO Physician Instructions: Reason For Exam: naso-orapharyn swelling [facility] Reason for admission: pharygeal edema Condition: Stable Hospital course: 58-year-old male with a history of hypertension, seizure, schizophrenia, IBS comes emergency room with complaints of gurgling and shortness of breath. He was [place] [facility] [place], diagnosed with the flu, he was given medication which he cannot recall. Today he felt like he was choking and he was gurgling a little. ER consulted anesthesia who placed nasal airway, however the patient pulled it out. ENT from [facility] was consulted on the patient, he recommended to continue Decadron and clindamycin * Patient was admitted continued on Tamiflu downgraded as noted in my previous record. 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 * He has been tolerating diet with no complaints. * Patient has not had any recurrent respiratory distress and is stable for discharge at this time * Steroids will be tapered * Patient was discharge but due to no transportation stayed an additional day. Today he is dressed and ready to go, no adverse event reported to me overnight Pharyngeal Edema Presumed influenza Hypertension Schizophrenia, stable Seizure Disposition: - TO HOME OR SELFCARE Time spent for discharge: 35 mins Core Measure Documentation - Palliative Care Palliative Care/ Comfort Measures: Not Applicable - Core Measures Any of the following diagnoses?: none Exam - Physical Exam Narrative exam: VITAL SIGNS: Reviewed. GENERAL: The patient appears normally developed, Vital signs as documented. HEAD: No signs of head trauma. EYES: Pupils are equal. Extraocular motions intact. EARS: Hearing grossly intact. MOUTH: Oropharynx is normal. NECK: No adenopathy, no JVD. CHEST: Chest with clear breath sounds bilaterally. No wheezes, rales, or rhonchi. CARDIAC: Regular rate and rhythm. S1 and S2, without murmurs, gallops, or rubs. VASCULAR: No Edema. Peripheral pulses normal and equal in all extremities. ABDOMEN: Soft, non tender and non distended. No rebound or guarding, and no masses palpated. Bowel Sounds normal. MUSCULOSKELETAL: Good range of motion of all major joints. Extremities without clubbing, cyanosis or edema. NEUROLOGIC EXAM: Alert and oriented x 3 No focal sensory or strength deficits. Speech normal at times garbled but appears to be in control. Follows commands. PSYCHIATRIC: Mood normal. SKIN: detial exam as documented in skin assessment - Constitutional Vitals: Temp Pulse Resp BP Pulse Ox 97.9 F 67 18 157/89 96 07/18/19 11:36 07/18/19 11:36 07/18/19 11:36 07/18/19 11:36 07/18/19 11:36 Plan Follow up with: ERNA LIMA MD [Primary Care Provider] - 3-5 Days
== END 2019-07-18 13:35 | disposition home or self-care (01) | DRG 156 ==
LOC: ED 14:09 → CC1 23:58 → IMCU 07-16 08:14 → 4A 07-16 11:43
PROVIDERS: ADMIT Internal Medicine; ATTEND Internal Medicine
DX: J39.2 Other diseases of pharynx (principal); I10 Essential (primary) hypertension; F20.9 Schizophrenia, unspecified; F17.200 Nicotine dependence, unspecified, uncomplicated; F14.90 Cocaine use, unspecified, uncomplicated; R56.9 Unspecified convulsions; Z88.0 Allergy status to penicillin; Z90.49 Acquired absence of other specified parts of digestive tract; Z72.89 Other problems related to lifestyle; Z82.49 Family history of ischemic heart disease and other diseases of the circulatory system
CPT/HCPCS: 36415; 70491; 71046; 80053; 85025; 85610; 87040; 87116; 87400; 87430; 94760; 99406; G0378; J0330; J0360; J1100; J1650; J2250; J2920; J2930; J7030; Q9967

== ENCOUNTER 2020-07-09 00:39 | Emergency (ER) | payer MEDICAID ==
[2020-07-09] MEDS ORDERED: diphenhydrAMINE 50 MG/ML VIAL IM ONE ×2 (02:44→02:45)
[2020-07-09] MEDS ORDERED: ACETAMINOPHEN 500 MG TAB PO ONE (02:44)
--- NOTE | 2020-07-09 02:49 | Emergency Department Report ---
ED General Adult HPI - General Chief complaint: Neuro Symptoms/Deficit Stated complaint: SHAKING Time Seen by Provider: 07/09/20 02:44 Source: patient Mode of arrival: Stretcher Limitations: No Limitations - History of Present Illness Initial comments: Patient is 59 years old male with history of schizophrenia. Patient presented to the ER complaining of involuntary movements for the last 2 days. Patient is currently on antipsychotic medication but he does not know what medication he is on and he did not bring his list. Patient denied any suicidal or homicidal ideation. Patient also denied any visual or auditory hallucination. - Related Data Previous Rx's Medication Instructions Recorded Last Taken Type diphenhydrAMINE [Benadryl CAP] 25 mg PO Q8HR PRN #20 capsule 07/09/20 Unknown Rx Allergies Allergy/AdvReac Type Severity Reaction Status Date / Time Penicillins AdvReac Itching Verified 07/15/19 21:37 ED Review of Systems ROS: Stated complaint: SHAKING Other details as noted in HPI Comment: All other systems reviewed and negative Constitutional: denies: chills, fever Respiratory: denies: cough, shortness of breath, SOB with exertion, SOB at rest, wheezing Cardiovascular: denies: chest pain, palpitations Gastrointestinal: denies: abdominal pain, nausea, vomiting Musculoskeletal: denies: back pain Neurological: denies: headache, weakness ED Past Medical Hx - Past Medical History Previous Medical History?: Yes Hx Hypertension: Yes Hx Psychiatric Treatment: Yes (Schizophrenia) - Surgical History Past Surgical History?: Yes Hx Appendectomy: Yes - Social History Smoking Status: Never Smoker Substance Use Type: Marijuana - Medications Home Medications: Home Medications Medication Instructions Recorded Confirmed Last Taken Type diphenhydrAMINE [Benadryl CAP] 25 mg PO Q8HR PRN #20 capsule 07/09/20 Unknown Rx ED Physical Exam - General Limitations: No Limitations General appearance: alert, other (Tardive dyskinesia) - Head Head exam: Present: atraumatic, normocephalic - Eye Eye exam: Present: normal appearance, PERRL - ENT ENT exam: Present: normal exam, normal orophraynx, mucous membranes moist - Neck Neck exam: Present: normal inspection, full ROM. Absent: tenderness, meningismus - Respiratory Respiratory exam: Present: normal lung sounds bilaterally - Cardiovascular Cardiovascular Exam: Present: regular rate, normal rhythm, normal heart sounds - GI/Abdominal GI/Abdominal exam: Present: soft, normal bowel sounds. Absent: distended, tenderness, guarding, rebound, rigid, organomegaly, mass, bruit, pulsatile mass, hernia - Extremities Exam Extremities exam: Present: normal inspection, full ROM, normal capillary refill. Absent: pedal edema, calf tenderness - Back Exam Back exam: Present: normal inspection, full ROM. Absent: CVA tenderness (R), CVA tenderness (L) - Neurological Exam Neurological exam: Present: alert, oriented X3, CN II-XII intact - Psychiatric Psychiatric exam: Present: normal mood - Skin Skin exam: Present: warm, intact, normal color ED Course Vital Signs 07/09/20 07/09/20 07/09/20 01:31 01:49 02:50 Temperature 98.1 F 98.1 F Pulse Rate 87 87 Respiratory 18 18 18 Rate Blood Pressure 229/194 168/99 Blood Pressure [Left] O2 Sat by Pulse 96 97 Oximetry 07/09/20 07/09/20 07/09/20 03:47 03:50 07:55 Temperature 98.3 F 98.6 F Pulse Rate 79 70 Respiratory 18 18 20 Rate Blood Pressure Blood Pressure 105/82 158/103 [Left] O2 Sat by Pulse 97 96 Oximetry ED Medical Decision Making - Medical Decision Making Patient is 59 years old male with history of schizophrenia. Patient presented to the ER complaining of involuntary movements for the last 2 days. Patient is currently on antipsychotic medication but he does not know what medication he is on and he did not bring his list. Patient denied any suicidal or homicidal ideation. Patient also denied any visual or auditory hallucination. Patient has significant tardive dyskinesia. Patient given Benadryl 50 mg IM and patient symptom improved significantly. Critical care attestation.: If time is entered above; I have spent that time in minutes in the direct care of this critically ill patient, excluding procedure time. ED Disposition Clinical Impression: Tardive dyskinesia Disposition: DC-01 TO HOME OR SELFCARE Is pt being admited?: No Condition: Stable Instructions: Tardive Dyskinesia Prescriptions: diphenhydrAMINE [Benadryl CAP] 25 mg PO Q8HR PRN #20 capsule PRN Reason: Itching Referrals: PRIMARY CARE, [Primary Care Provider] - 3-5 Days
[2020-07-09] MEDS ORDERED: PANTOPRAZOLE 40 MG TAB PO ONE ×2 (03:00→03:03)
[2020-07-09 07:55] VITALS: BP 158/103
== END 2020-07-09 10:00 | disposition home or self-care (01) ==
LOC: ED 00:39
DX: G24.01 Drug induced subacute dyskinesia (principal); I10 Essential (primary) hypertension; F25.0 Schizoaffective disorder, bipolar type; F12.10 Cannabis abuse, uncomplicated; Z90.49 Acquired absence of other specified parts of digestive tract; Z79.899 Other long term (current) drug therapy; Z88.0 Allergy status to penicillin
CPT/HCPCS: 96372; 99284; J1200

== ENCOUNTER 2021-02-16 11:20 | Emergency (ER) | payer MEDICAID ==
[2021-02-16] MEDS ORDERED: levETIRAcetam 500 MG TAB PO ONE (11:43)
[2021-02-16] MEDS ORDERED: LORazepam 2 MG/ML VIAL IV ONE (11:44)
--- NOTE | 2021-02-16 12:35 | Emergency Department Report ---
ED General Adult HPI - General Chief complaint: Seizure Stated complaint: SZ Time Seen by Provider: 02/16/21 11:43 Source: EMS Mode of arrival: Stretcher Limitations: No Limitations - History of Present Illness Initial comments: The patient presents to the emergency department for seizure activity at home. Patient has a history of seizures and takes Keppra for his seizures. Upon EMS arrival to the emergency department the patient is back to his baseline and answers all questions without issue. Per EMS the patient reportedly did not hit his head by bystanders. Patient denies chest pain, shortness breath, headache, abdominal pain. -: Sudden Severity scale (0 -10): 0 Consistency: now resolved Improves with: none Worsens with: none Associated Symptoms: denies other symptoms Treatments Prior to Arrival: none - Related Data Previous Rx's Medication Instructions Recorded Last Taken Type diphenhydrAMINE [Benadryl CAP] 25 mg PO Q8HR PRN #20 capsule 07/09/20 Unknown Rx Allergies Allergy/AdvReac Type Severity Reaction Status Date / Time Penicillins AdvReac Itching Verified 02/16/21 12:05 ED Review of Systems ROS: Stated complaint: SZ Other details as noted in HPI Comment: All other systems reviewed and negative Constitutional: denies: chills, fever Eyes: denies: eye pain, eye discharge, vision change ENT: denies: ear pain, throat pain Respiratory: denies: cough, shortness of breath, wheezing Cardiovascular: denies: chest pain, palpitations Endocrine: no symptoms reported Gastrointestinal: denies: abdominal pain, nausea, diarrhea Genitourinary: denies: urgency, dysuria Musculoskeletal: denies: back pain, joint swelling, arthralgia Skin: denies: rash, lesions Neurological: denies: headache, weakness, paresthesias Psychiatric: denies: anxiety, depression Hematological/Lymphatic: denies: easy bleeding, easy bruising ED Past Medical Hx - Past Medical History Previous Medical History?: Yes Hx Hypertension: Yes Hx Psychiatric Treatment: Yes (Schizophrenia) Additional medical history: parkinson - Surgical History Hx Appendectomy: Yes - Social History Smoking Status: Current Every Day Smoker - Medications Home Medications: Home Medications Medication Instructions Recorded Confirmed Last Taken Type diphenhydrAMINE [Benadryl CAP] 25 mg PO Q8HR PRN #20 capsule 07/09/20 Unknown Rx ED Physical Exam - General Limitations: No Limitations General appearance: alert, in no apparent distress - Head Head exam: Present: atraumatic, normocephalic - Eye Eye exam: Present: normal appearance, PERRL, EOMI - ENT ENT exam: Present: mucous membranes moist - Neck Neck exam: Present: normal inspection - Respiratory Respiratory exam: Present: normal lung sounds bilaterally. Absent: respiratory distress - Cardiovascular Cardiovascular Exam: Present: regular rate, normal rhythm. Absent: systolic murmur, diastolic murmur, rubs, gallop - GI/Abdominal GI/Abdominal exam: Present: soft, normal bowel sounds - Rectal Rectal exam: Present: deferred - Extremities Exam Extremities exam: Present: normal inspection - Back Exam Back exam: Present: normal inspection - Neurological Exam Neurological exam: Present: alert, oriented X3, CN II-XII intact. Absent: motor sensory deficit - Psychiatric Psychiatric exam: Present: normal affect, normal mood - Skin Skin exam: Present: warm, dry, intact, normal color. Absent: rash ED Course Vital Signs 02/16/21 12:02 Temperature 98.6 F Pulse Rate 56 L Respiratory 17 Rate Blood Pressure 131/102 O2 Sat by Pulse 98 Oximetry ED Medical Decision Making - Medical Decision Making Sudha given Critical care attestation.: If time is entered above; I have spent that time in minutes in the direct care of this critically ill patient, excluding procedure time. ED Disposition Clinical Impression: Seizure Disposition: DC-01 TO HOME OR SELFCARE Is pt being admited?: No Does the pt Need Aspirin: No Condition: Stable Instructions: Seizure, Adult Additional Instructions: return if worse Referrals: PRIMARY CARE, [Primary Care Provider] - 3-5 Days DAVID URBINA MD [Staff Physician] - 3-5 Days Time of Disposition: 12:33
[2021-02-16 20:41] VITALS: BP 134/93
== END 2021-02-16 21:00 | disposition home or self-care (01) ==
LOC: ED 11:20
DX: R56.9 Unspecified convulsions (principal); I10 Essential (primary) hypertension; F20.9 Schizophrenia, unspecified; F17.200 Nicotine dependence, unspecified, uncomplicated; Z90.49 Acquired absence of other specified parts of digestive tract; Z79.899 Other long term (current) drug therapy; Z88.0 Allergy status to penicillin
CPT/HCPCS: 96374; 99283; J2060

== ENCOUNTER 2021-03-09 10:43 | Emergency (ER) | payer MEDICAID ==
[2021-03-09 11:36] VITALS: BP 108/81
--- NOTE | 2021-03-09 22:12 | XRay Report ---
CHEST 2 VIEWS INDICATION / CLINICAL INFORMATION: cough, cp and sob. COMPARISON: 07/15/2019 FINDINGS: SUPPORT DEVICES: None. HEART / MEDIASTINUM: No significant abnormality. LUNGS / PLEURA: No significant pulmonary or pleural abnormality. No pneumothorax. ADDITIONAL FINDINGS: No significant additional findings. IMPRESSION: 1. No acute findings. Signer Name: Terry Sharif MD Signed: 03/09/2021 10:08 PM Workstation Name: [id number]
--- NOTE | 2021-03-10 00:51 | Emergency Department Report ---
ED General Adult HPI - General Chief complaint: Dyspnea/Respdistress Stated complaint: DIFFICULTY BREATHING Time Seen by Provider: 03/09/21 20:30 Source: EMS Mode of arrival: Stretcher Limitations: No Limitations - History of Present Illness Initial comments: 52-year-old [place] male presents emergency department complaining of a 2 to 3- month history of cough congestion and coryza that is worse over the last 2 to 3 days experiencing some shortness of breath and thick mucus production associated with some nausea and reports no fever, chills, sweats no hemoptysis no hematemesis hematochezia, no known contact with coronavirus no foreign travel. Reports no cardiac history to his knowledge and no pulmonary pulmonary history reports no smoking. -: Gradual Radiation: non-radiation Severity scale (0 -10): 0 Consistency: constant Improves with: none Worsens with: none Associated Symptoms: cough - Related Data Previous Rx's Medication Instructions Recorded Last Taken Type diphenhydrAMINE [Benadryl CAP] 25 mg PO Q8HR PRN #20 capsule 07/09/20 Unknown Rx Albuterol Mdi (or & Nicu Only) 1 puff IH Q4-6H PRN #1 inha 03/09/21 Unknown Rx [ProAir HFA Inhaler] Benzonatate [Tessalon Perles] 100 mg PO Q8HR #20 capsule 03/09/21 Unknown Rx predniSONE [Deltasone] 20 mg PO QDAY #5 tab 03/09/21 Unknown Rx Allergies Allergy/AdvReac Type Severity Reaction Status Date / Time Penicillins AdvReac Itching Verified 02/16/21 12:05 ED Review of Systems ROS: Stated complaint: DIFFICULTY BREATHING Other details as noted in HPI Comment: All other systems reviewed and negative ED Past Medical Hx - Past Medical History Hx Hypertension: Yes Hx Psychiatric Treatment: Yes (Schizophrenia) Additional medical history: parkinson - Surgical History Hx Appendectomy: Yes - Social History Smoking Status: Current Every Day Smoker - Medications Home Medications: Home Medications Medication Instructions Recorded Confirmed Last Taken Type diphenhydrAMINE [Benadryl CAP] 25 mg PO Q8HR PRN #20 capsule 07/09/20 Unknown Rx Albuterol Mdi (or & Nicu Only) 1 puff IH Q4-6H PRN #1 inha 03/09/21 Unknown Rx [ProAir HFA Inhaler] Benzonatate [Tessalon Perles] 100 mg PO Q8HR #20 capsule 03/09/21 Unknown Rx predniSONE [Deltasone] 20 mg PO QDAY #5 tab 03/09/21 Unknown Rx ED Physical Exam - General Limitations: No Limitations General appearance: alert, in no apparent distress - Head Head exam: Present: atraumatic, normocephalic - Eye Eye exam: Present: normal appearance - ENT ENT exam: Present: mucous membranes moist - Neck Neck exam: Present: normal inspection - Respiratory Respiratory exam: Present: normal lung sounds bilaterally, rhonchi. Absent: respiratory distress, accessory muscle use, decreased breath sounds (a) - Cardiovascular Cardiovascular Exam: Present: regular rate, normal rhythm. Absent: systolic murmur, diastolic murmur, rubs, gallop - GI/Abdominal GI/Abdominal exam: Present: soft, normal bowel sounds - Rectal Rectal exam: Present: deferred - Extremities Exam Extremities exam: Present: normal inspection - Back Exam Back exam: Present: normal inspection - Neurological Exam Neurological exam: Present: alert, oriented X3 - Psychiatric Psychiatric exam: Present: normal affect, normal mood - Skin Skin exam: Present: warm, dry, intact, normal color. Absent: rash ED Course Vital Signs 03/09/21 11:33 Temperature 98.2 F Pulse Rate 72 Respiratory 18 Rate Blood Pressure 108/81 [Right] O2 Sat by Pulse 96 Oximetry ED Medical Decision Making - Radiology Data Radiology results: report reviewed [address] [address] XRay Report Signed Patient: SIXTO RODRIGUEZ MR#: [id number] 12 : 1960 Acct:[id number] Age/Sex: 60 / M ADM Date: 03/09/21 Loc: ED Attending Dr: Ordering Physician: JULIA VITALE Date of Service: 03/09/21 Procedure(s): XR chest routine 2V Accession Number(s): [id number] cc: JULIA VITALE Fluoro Time In Minutes: CHEST 2 VIEWS INDICATION / CLINICAL INFORMATION: cough, cp and sob. COMPARISON: 07/15/2019 FINDINGS: SUPPORT DEVICES: None. HEART / MEDIASTINUM: No significant abnormality. LUNGS / PLEURA: No significant pulmonary or pleural abnormality. No pneumothorax. ADDITIONAL FINDINGS: No significant additional findings. IMPRESSION: 1. No acute findings. Signer Name: Terry Velarde MD Signed: 03/09/2021 10:08 PM Workstation Name: [id number] Transcribed By: SB Dictated By: TERRY VELARDE MD Electronically Authenticated By: TERRY VELARDE MD Signed Date/Time: 03/09/212207 DD/ 06 TD/TT: - Medical Decision Making This patient presents with acute cough, most consistent with bronchitis. Differential diagnosis includes asthma, bronchitis, pneumonia, hyperreactive airways disease. Presentation not consistent with acute bacterial pneumonia, i nfluenza, asthma, transient airway hyperresponsiveness. Presentation not consistent with chronic causes of cough (including GERD, asthma, postnasal discharge, medication side effect, CHF, lung cancer or mass). Plan: Normal CXR, supportive care, reassess This patient presents to the emergency department with fever and lower respiratory symptoms concerning for viral syndrome including flu and COVID-19. Patient has suspicion and is for COVID-19 infection. Differential diagnosis includes other viral causes of lower respiratory symptoms, pneumonia, asthma, bronchitis. Patient is well-appearing with acceptable vitals, lacks comorbidities admission and a reassuring physical examination and is safe to be discharged home nasal swab for COVID testing is recommended. Provide strict return precautions and instructions on self isolation/quarantine and anticipatory guidance. Critical care attestation.: If time is entered above; I have spent that time in minutes in the direct care of this critically ill patient, excluding procedure time. ED Disposition Clinical Impression: Cough, Bronchitis Disposition: DC-01 TO HOME OR SELFCARE Is pt being admited?: No Does the pt Need Aspirin: No Condition: Stable Instructions: Cool Mist Vaporizer, Cough, Adult, [id number], Upper Respiratory Infection, Adult, [id number], How to Use a Dry Powder Inhaler, Chronic Bronchitis (ED) Prescriptions: predniSONE [Deltasone] 20 mg PO QDAY #5 tab Albuterol Mdi (or & Nicu Only) [ProAir HFA Inhaler] 1 puff IH Q4-6H PRN #1 inha PRN Reason: Cough Benzonatate [Tessalon Perles] 100 mg PO Q8HR #20 capsule Referrals: [facility] [Provider Group] - 3-5 Days PRIMARY CARE, [Primary Care Provider] - 3-5 Days
== END 2021-03-09 22:00 | disposition home or self-care (01) ==
LOC: ED 10:43
DX: R05 Cough (principal); J45.909 Unspecified asthma, uncomplicated; F20.9 Schizophrenia, unspecified; G20 Parkinson's disease; F17.200 Nicotine dependence, unspecified, uncomplicated; Z98.890 Other specified postprocedural states; Z88.0 Allergy status to penicillin
CPT/HCPCS: 71046; 99283

== ENCOUNTER 2021-10-26 14:12 | Emergency (ER) | payer MEDICAID ==
[2021-10-26 14:14] VITALS: BP 170/90
[2021-10-26] MEDS ORDERED: DEXAMETHASONE 4 MG TAB PO ONE (16:01)
[2021-10-26] MEDS ORDERED: KETOROLAC 10 MG TAB PO ONE (16:01)
--- NOTE | 2021-10-26 16:49 | Emergency Department Report ---
ED ENT HPI - General Chief complaint: Neck Pain/Injury Stated complaint: NECK SPASMS Time Seen by Provider: 10/26/21 15:29 Source: patient, EMS Mode of arrival: Ambulatory Limitations: No Limitations - History of Present Illness Initial comments: 60-year-old black male with a past medical history of schizophrenia presents to the emergency department for evaluation of sore throat. He states that he woke up this morning with a sore throat, sinus congestion, and slight headache. He denies fever and shortness of breath. He states that he has not taken any medication for his symptoms. He denies sick contacts. MD complaint: sore throat -: hour(s) Location: throat Severity: moderate Severity scale (0 -10): 7 Quality: aching Consistency: intermittent Worsens with: swallowing Associated Symptoms: cough, pain with swallowing, sore throat, rhinorrhea. denies: fever, gum swelling, toothache, tinnitus, hearing loss, discharge from ear - Related Data Previous Rx's Medication Instructions Recorded Last Taken Type diphenhydrAMINE [Benadryl CAP] 25 mg PO Q8HR PRN #20 capsule 07/09/20 Unknown Rx Albuterol Mdi (or & Nicu Only) 1 puff IH Q4-6H PRN #1 inha 03/09/21 Unknown Rx [ProAir HFA Inhaler] Benzonatate [Tessalon Perles] 100 mg PO Q8HR #20 capsule 03/09/21 Unknown Rx predniSONE [Deltasone] 20 mg PO QDAY #5 tab 03/09/21 Unknown Rx Cetirizine HCl [ZyrTEC 10mg cap] 10 mg PO DAILY #30 cap 10/26/21 Unknown Rx Allergies Allergy/AdvReac Type Severity Reaction Status Date / Time Penicillins AdvReac Itching Verified 10/26/21 14:14 ED Dental HPI - General Chief complaint: Neck Pain/Injury Stated complaint: NECK SPASMS Time Seen by Provider: 10/26/21 15:29 Source: patient, EMS Mode of arrival: Ambulatory Limitations: No Limitations - Related Data Previous Rx's Medication Instructions Recorded Last Taken Type diphenhydrAMINE [Benadryl CAP] 25 mg PO Q8HR PRN #20 capsule 07/09/20 Unknown Rx Albuterol Mdi (or & Nicu Only) 1 puff IH Q4-6H PRN #1 inha 03/09/21 Unknown Rx [ProAir HFA Inhaler] Benzonatate [Tessalon Perles] 100 mg PO Q8HR #20 capsule 03/09/21 Unknown Rx predniSONE [Deltasone] 20 mg PO QDAY #5 tab 03/09/21 Unknown Rx Cetirizine HCl [ZyrTEC 10mg cap] 10 mg PO DAILY #30 cap 10/26/21 Unknown Rx Allergies Allergy/AdvReac Type Severity Reaction Status Date / Time Penicillins AdvReac Itching Verified 10/26/21 14:14 ED Review of Systems ROS: Stated complaint: NECK SPASMS Other details as noted in HPI Comment: All other systems reviewed and negative Constitutional: denies: chills, fever, weakness Eyes: denies: eye pain, vision change ENT: throat pain, congestion Respiratory: cough. denies: shortness of breath, SOB with exertion, SOB at rest Cardiovascular: denies: chest pain, palpitations, dyspnea on exertion Gastrointestinal: denies: abdominal pain, nausea, vomiting Musculoskeletal: denies: back pain Skin: denies: rash, lesions Neurological: headache. denies: weakness, numbness, paresthesias, confusion, abnormal gait, vertigo ED Past Medical Hx - Past Medical History Hx Hypertension: Yes Hx Psychiatric Treatment: Yes (Schizophrenia) Additional medical history: parkinson - Surgical History Hx Appendectomy: Yes - Social History Smoking Status: Current Every Day Smoker - Medications Home Medications: Home Medications Medication Instructions Recorded Confirmed Last Taken Type diphenhydrAMINE [Benadryl CAP] 25 mg PO Q8HR PRN #20 capsule 07/09/20 Unknown Rx Albuterol Mdi (or & Nicu Only) 1 puff IH Q4-6H PRN #1 inha 03/09/21 Unknown Rx [ProAir HFA Inhaler] Benzonatate [Tessalon Perles] 100 mg PO Q8HR #20 capsule 03/09/21 Unknown Rx predniSONE [Deltasone] 20 mg PO QDAY #5 tab 03/09/21 Unknown Rx Cetirizine HCl [ZyrTEC 10mg cap] 10 mg PO DAILY #30 cap 10/26/21 Unknown Rx ED Physical Exam - General Limitations: No Limitations General appearance: alert, in no apparent distress - Head Head exam: Present: atraumatic, normocephalic - Eye Eye exam: Present: normal appearance. Absent: conjunctival injection - ENT ENT exam: Present: mucous membranes moist, normal external ear exam. Absent: normal exam (bilateral nasal mucocal edema and turbinate swelling. ), normal orophraynx (erythema noted to posterior orophraynx ) - Neck Neck exam: Present: normal inspection. Absent: tenderness, lymphadenopathy - Respiratory Respiratory exam: Present: normal lung sounds bilaterally. Absent: respiratory distress, wheezes, rales, rhonchi, stridor, chest wall tenderness - Cardiovascular Cardiovascular Exam: Present: regular rate, normal heart sounds - GI/Abdominal GI/Abdominal exam: Present: soft, normal bowel sounds. Absent: distended - Extremities Exam Extremities exam: Present: normal inspection - Back Exam Back exam: Present: normal inspection - Neurological Exam Neurological exam: Present: alert, oriented X3, normal gait - Psychiatric Psychiatric exam: Present: normal affect, normal mood - Skin Skin exam: Present: warm, dry, intact, normal color ED Course Vital Signs 10/26/21 14:13 Pulse Rate 93 H Respiratory 16 Rate Blood Pressure 170/90 [Left] O2 Sat by Pulse 97 Oximetry - Reevaluation(s) Reevaluation #1: 10/26/21 16:48 Sore throat and congestion slightly improved. ED Medical Decision Making - Medical Decision Making 60-year-old black male with a past medical history of schizophrenia presents to the emergency department for evaluation of sore throat. He states that he woke up this morning with a sore throat, sinus congestion, and slight headache. He denies fever and shortness of breath. He states that he has not taken any medication for his symptoms. He denies sick contacts. Exam consistent with sinusitis. No acute abnormalities noted. Patient will be treated with a one-time dose of Decadron and Toradol and sent home with Zyrtec 10 mg p.o. daily for the next few days. He is advised to take medication as prescribed, drink plenty of noncaffeinated fluids, and follow-up with primary ca re provider if no improvement or worsening symptoms. He verbalized understanding of and agreement with plan of care. Critical care attestation.: If time is entered above; I have spent that time in minutes in the direct care of this critically ill patient, excluding procedure time. ED Disposition Clinical Impression: Sinusitis Qualifiers: Sinusitis location: frontal Chronicity: acute Recurrence: non-recurrent Qualified Code(s): J01.10 - Acute frontal sinusitis, unspecified Disposition: 01 HOME / SELF CARE / HOMELESS Is pt being admited?: No Does the pt Need Aspirin: No Condition: Stable Instructions: Sinusitis, Adult, [id number] Additional Instructions: Take medications as prescribed. Drink plenty of noncaffeinated fluids. Follow- up with primary care provider if worsening symptoms. Prescriptions: Cetirizine HCl [ZyrTEC 10mg cap] 10 mg PO DAILY #30 cap Referrals: JAQUELINE AYALA [Other] - 3-5 Days Time of Disposition: 16:49
== END 2021-10-26 17:07 | disposition home or self-care (01) ==
LOC: ED 14:12
DX: J32.9 Chronic sinusitis, unspecified (principal); I10 Essential (primary) hypertension; F20.9 Schizophrenia, unspecified; Z79.899 Other long term (current) drug therapy; Z98.890 Other specified postprocedural states; Z88.0 Allergy status to penicillin; F17.200 Nicotine dependence, unspecified, uncomplicated
CPT/HCPCS: 99283; J8540